=== PATIENT | male | born 1975 | race Hispanic/Latino ===

== ENCOUNTER 2017-01-30 06:34 | Emergency (ER) | payer OTHER ==
[2017-01-30 06:34] VITALS: BMI 29.9
[2017-01-30 06:55] VITALS: BP 120/69; PULSE 68; RESP 16; TEMP 98.3; O2SAT 98
[2017-01-30] MEDS ORDERED: Sodium Chloride 0.9% 1,000 ML IV STA (07:15)
--- NOTE | 2017-01-30 07:15 | ED PDOC ---
HPI: General Adult Time Seen by Provider: 01/30/17 07:12 Chief Complaint (Nursing): Abdominal Pain Chief Complaint (Provider): abdominal pain History Per: Patient History/Exam Limitations: no limitations Additional Complaint(s): 41yo male complaining of abdominal pain since last night. Also reports back pain , dizziness, nausea. States he's had constipation. Denies diarrhea, vomit or fever. Past Medical History Reviewed: Historical Data, Nursing Documentation, Vital Signs Vital Signs: Last Vital Signs Temp 98.3 F 01/30/17 06:53 Pulse 68 01/30/17 06:53 Resp 16 01/30/17 06:53 BP 120/69 01/30/17 06:53 Pulse Ox 98 01/30/17 07:19 - Medical History PMH: Bipolar Disorder, Hypercholesterolemia, Schizophrenia - Family History Family History: States: Unknown Family Hx - Immunization History Hx Tetanus Toxoid Vaccination: No Hx Influenza Vaccination: No Hx Pneumococcal Vaccination: No - Home Medications Home Medications: Ambulatory Orders Medication Instructions Recorded Paliperidone Palmitate [Invega mg IM Q30D 12/31/14 Sustenna] Divalproex [Depakote] mg PO DAILY 01/06/16 Azithromycin [Zithromax Z-Clifford] 250 mg PO DAILY #1 packet 04/05/16 Benzonatate 200 mg PO TID PRN #20 capsule 04/05/16 Fluticasone Nasal [Flonase] 1 spray NS DAILY #0 spr 04/05/16 Ibuprofen [Motrin] 600 mg PO Q6 #20 tab 07/27/16 Ibuprofen [Motrin] 400 mg PO Q6 #30 tab 08/29/16 Famotidine [Pepcid] 20 mg PO Q12 #20 tab 01/30/17 Ondansetron [Zofran] 4 mg PO Q8H #10 tab 01/30/17 - Allergies Allergies/Adverse Reactions: Allergies Allergy/AdvReac Type Severity Reaction Status Date / Time No Known Allergies Allergy Verified 08/29/16 16:31 Review of Systems ROS Statement: Except As Marked, All Systems Reviewed And Found Negative Gastrointestinal: Positive for: Nausea, Abdominal Pain, Constipation. Negative for: Vomiting, Diarrhea Musculoskeletal: Positive for: Back Pain Physical Exam - Reviewed Nursing Documentation Reviewed: Yes Vital Signs Reviewed: Yes - Physical Exam Appears: Positive for: Well, Non-toxic, No Acute Distress Head Exam: Positive for: ATRAUMATIC, NORMAL INSPECTION, NORMOCEPHALIC Skin: Positive for: Warm, Dry Eye Exam: Positive for: EOMI, PERRL Cardiovascular/Chest: Positive for: Regular Rate, Rhythm Respiratory: Positive for: Normal Breath Sounds. Negative for: Rales, Rhonchi, Wheezing Gastrointestinal/Abdominal: Positive for: Soft, Tenderness (mild epigastric). Negative for: Guarding, Rebound Extremity: Positive for: Normal ROM - Laboratory Results Result Diagrams: 01/30/17 08:08 01/30/17 08:08 - ECG O2 Sat by Pulse Oximetry: 98 (RA) Pulse Ox Interpretation: Normal Medical Decision Making Medical Decision Makin: Labs, IV fluids, pepcid, zofran ordered. Disposition - Clinical Impression Clinical Impression: Gastritis - Patient ED Disposition Is Patient to be Admitted: No Counseled Patient/Family Regarding: Studies Performed, Diagnosis, Need For Followup, Rx Given - Disposition Referrals: [facility] [Outside] Disposition: Routine/Home Disposition Time: 09:04 Condition: FAIR Prescriptions: Famotidine [Pepcid] 20 mg PO Q12 #20 tab Ondansetron [Zofran] 4 mg PO Q8H #10 tab Instructions: Gastritis (ED) Additional Comments - Additional Comments Additional Comments: Scribe Attestation: Documented by Levon Stark acting as a scribe for Luis F Rodríguez MD. Provider Scribe Attestation: All medical record entries made by the Scribe were at my direction and personally dictated by me. I have reviewed the chart and agree that the record accurately reflects my personal performance of the history, physical exam, medical decision making, and the department course for this patient. I have also personally directed, reviewed, and agree with the discharge instructions and disposition.
[2017-01-30 08:11] LABS: BASO # 0.1 K/uL (0.0-0.2); BASO % 0.7 % (0.0-2.0); EOS # 0.2 K/uL (0.0-0.7); EOS % 1.8 % (0.0-4.0); LYMPH # 0.8 K/uL (1.0-4.3); LYMPH % 8.5 % (20.0-40.0); MEAN CELL VOLUME 89.1 fl (80.0-94.0); MEAN CORPUSCULAR HEMOGLOBIN 30.2 pg (27.0-31.0); MEAN CORPUSCULAR HGB CONC 33.9 g/dL (33.0-37.0); MONO # 0.6 K/uL (0.0-0.8); MONO % 6.3 % (0.0-10.0); NEUT # 7.4 K/uL (1.8-7.0); NEUT % 82.7 % (50.0-75.0); PLATELET COUNT 178 K/uL (130-400); RED CELL DISTRIBUTION WIDTH 12.8 % (11.5-14.5)
[2017-01-30 08:33] LABS: ALB/GLOB RATIO 1.2 (1.0-2.1); ALKALINE PHOSPHATASE 63 U/L (38-126); ALT/SGPT 46 U/L (21-72); AST/SGOT 45 U/L (17-59); BILIRUBIN,TOTAL 0.4 mg/dl (0.2-1.3); BLOOD UREA NITROGEN 13 mg/dl (9-20); CALCIUM 9.2 mg/dL (8.4-10.2); CARBON DIOXIDE 26 mmol/L (22-30); CHLORIDE 103 mmol/L (98-107); GFR AFRICAN-AMERICAN > 60; GLUCOSE,RANDOM 108 mg/dL (75-110); POTASSIUM 4.1 MMOL/L (3.6-5.0); SODIUM 143 mmol/l (132-148); TOTAL PROTEIN 7.5 G/DL (6.3-8.2)
[2017-01-30 11:23] LABS: BASOPHIL 1 % (0-2); EOSINOPHIL 1 % (0-7); NEUTROPHIL 79 % (42-75); REACTIVE LYMPHOCYTES 2 % (0-0); TOTAL CELLS COUNTED 100
== END 2017-01-30 09:12 | disposition home or self-care (01) ==
LOC: H.ER 06:34
DX: K29.70 Gastritis, unspecified, without bleeding (principal); R42 Dizziness and giddiness; K59.00 Constipation, unspecified; E78.00 Pure hypercholesterolemia, unspecified; F20.9 Schizophrenia, unspecified; F31.9 Bipolar disorder, unspecified

== ENCOUNTER 2018-01-30 20:32 | Emergency (ER) | payer OTHER ==
[2018-01-30 20:32] VITALS: BMI 29.9
[2018-01-30 20:59] VITALS: BP 113/84; PULSE 68; RESP 18; TEMP 96.8; O2SAT 99
[2018-01-30 22:25] LABS: BASO # 0.1 K/uL (0.0-0.2); BASO % 0.9 % (0.0-2.0); EOS # 0.2 K/uL (0.0-0.7); EOS % 2.7 % (0.0-4.0); HEMOGLOBIN 14.2 g/dL (12.0-18.0); LYMPH # 1.8 K/uL (1.0-4.3); LYMPH % 26.6 % (20.0-40.0); MEAN CELL VOLUME 90.6 fl (80.0-94.0); MEAN CORPUSCULAR HEMOGLOBIN 30.7 pg (27.0-31.0); MEAN CORPUSCULAR HGB CONC 33.9 g/dL (33.0-37.0); MEAN PLATELET VOLUME 8.9 fl (7.2-11.7); MONO # 0.7 K/uL (0.0-0.8); MONO % 10.6 % (0.0-10.0); NEUT # 4.1 K/uL (1.8-7.0); NEUT % 59.2 % (50.0-75.0); RBC 4.61 Mil/uL (4.40-5.90); RED CELL DISTRIBUTION WIDTH 13.1 % (11.5-14.5); WHITE BLOOD COUNT 6.9 K/uL (4.8-10.8)
--- NOTE | 2018-01-30 22:28 | ED PDOC ---
HPI: Abdomen Time Seen by Provider: 01/30/18 21:01 Chief Complaint (Nursing): GI Problem Chief Complaint (Provider): Abdominal pain History Per: Patient History/Exam Limitations: no limitations Onset/Duration Of Symptoms: Hrs (1) Outside of [place] travel?: No Current Symptoms Are (Timing): Still Present Additional Complaint(s): 42yo male with history of schizoaffective bipolar disorder, gastritis, dislipidemia, presents to ED with abdominal pain for 1 hour. Patient states he has history of constipation but had a bowel movement last night which was ok. Patient states today he noted abdominal distention associated with mild pain; denies any fever, changes in appetite, or diarrhea. Patient has no other medical complaints. Past Medical History Reviewed: Historical Data, Nursing Documentation, Vital Signs Vital Signs: Last Vital Signs Temp 96.8 F L 01/30/18 20:55 Pulse 68 01/30/18 20:55 Resp 18 01/30/18 20:55 BP 113/84 01/30/18 20:55 Pulse Ox 99 01/30/18 22:31 - Medical History PMH: Bipolar Disorder, Hypercholesterolemia, Schizophrenia - Surgical History Surgical History: No Surg Hx - Family History Family History: States: Unknown Family Hx - Immunization History Hx Tetanus Toxoid Vaccination: No Hx Influenza Vaccination: No Hx Pneumococcal Vaccination: No - Home Medications Home Medications: Ambulatory Orders Medication Instructions Recorded Paliperidone Palmitate [Invega mg IM Q30D 12/31/14 Sustenna] Divalproex [Depakote] mg PO DAILY 01/06/16 Azithromycin [Zithromax Z-Clifford] 250 mg PO DAILY #1 packet 04/05/16 Benzonatate 200 mg PO TID PRN #20 capsule 04/05/16 Fluticasone Nasal [Flonase] 1 spray NS DAILY #0 spr 04/05/16 Ibuprofen [Motrin] 600 mg PO Q6 #20 tab 07/27/16 Ibuprofen [Motrin] 400 mg PO Q6 #30 tab 08/29/16 Famotidine [Pepcid] 20 mg PO Q12 #20 tab 01/30/17 Ondansetron [Zofran] 4 mg PO Q8H #10 tab 01/30/17 Dicyclomine [Bentyl] 20 mg PO Q12 PRN #20 tab 01/30/18 Docusate [Colace] 100 mg PO BID PRN #20 cap 01/30/18 - Allergies Allergies/Adverse Reactions: Allergies Allergy/AdvReac Type Severity Reaction Status Date / Time No Known Allergies Allergy Verified 08/29/16 16:31 Review of Systems ROS Statement: Except As Marked, All Systems Reviewed And Found Negative Constitutional: Negative for: Fever Gastrointestinal: Positive for: Abdominal Pain, Constipation. Negative for: Diarrhea Physical Exam - Reviewed Nursing Documentation Reviewed: Yes Vital Signs Reviewed: Yes - Physical Exam Appears: Positive for: Non-toxic, No Acute Distress Head Exam: Positive for: ATRAUMATIC, NORMAL INSPECTION, NORMOCEPHALIC Skin: Positive for: Normal Color Eye Exam: Positive for: Normal appearance Neck: Positive for: Normal, Supple Cardiovascular/Chest: Positive for: Regular Rate, Rhythm Respiratory: Positive for: Normal Breath Sounds Gastrointestinal/Abdominal: Positive for: Normal Exam, Soft, Distended (mild). Negative for: Tenderness Back: Positive for: Normal Inspection Extremity: Positive for: Normal ROM. Negative for: Deformity Neurologic/Psych: Positive for: Alert, Oriented. Negative for: Motor/Sensory Deficits - Laboratory Results Result Diagrams: 01/30/18 22:02 01/30/18 22:20 - ECG O2 Sat by Pulse Oximetry: 99 (RA) Pulse Ox Interpretation: Normal Medical Decision Making Medical Decision Making: Impression: 42yo male with abdominal pain, distention Plan: -- Bentyl 20mg PO -- Pepcid 20 mg IV -- Toradol 15 mg IV -- Labs -- Urinalysis -- XR Abdomen w/ Chest Time: 2210 Chest x-ray as reviewed by provider indicates no acute disease, no air fluid level. XR Abdomen shows stool burden. Time: 2341 --Upon provider reevaluation, patient is medically stable, reports improvement and requires no further treatment in the ED at this time. Patient will be discharged home with Rx for Bentyl 20mg and Colace 100mg. Counseling was provided and all questions were answered regarding diagnosis. There is agreement to discharge plan. Return if symptoms persist or worsen. Clinical Impression: Abdominal pain Scribe Attestation: Documented by Lizbeth Crespo acting as a scribe for Felix Christina MD. Provider Attestation: All medical record entries made by the Scribe were at my direction and personally dictated by me. I have reviewed the chart and agree that the record accurately reflects my personal performance of the history, physical exam, medical decision making, and the department course for this patient. I have also personally directed, reviewed, and agree with the discharge instructions and disposition. Disposition - Clinical Impression Clinical Impression: Abdominal pain - Patient ED Disposition Is Patient to be Admitted: No Counseled Patient/Family Regarding: Studies Performed, Diagnosis, Need For Followup - Disposition Disposition: Routine/Home Disposition Time: 23:42 Condition: STABLE Prescriptions: Dicyclomine [Bentyl] 20 mg PO Q12 PRN #20 tab PRN Reason: abdominal pain Docusate [Colace] 100 mg PO BID PRN #20 cap PRN Reason: Constipation Instructions: Stomach Ache and Stomach Upset Forms: [employer] (Danish)
[2018-01-30 22:31] LABS: URINE BACTERIA RARE (<OCC); URINE BILIRUBIN NEGATIVE (NEGATIVE); URINE BLOOD NEGATIVE (NEGATIVE); URINE CLARITY CLEAR (Clear); URINE COLOR STRAW (YELLOW); URINE GLUCOSE (UA) NEG (Normal); URINE LEUKOCYTE ESTERASE NEG Leu/uL (Negative); URINE PROTEIN NEGATIVE (NEGATIVE); URINE UROBILINOGEN 0.2-1.0 mg/dL (0.2-1.0)
[2018-01-30 22:34] LABS: ALB/GLOB RATIO 1.2 (1.0-2.1); ALBUMIN 4.4 g/dL (3.5-5.0); ALT/SGPT 55 U/L (21-72); AST/SGOT 46 U/L (17-59); BLOOD UREA NITROGEN 10 mg/dl (9-20); CALCIUM 8.9 mg/dL (8.4-10.2); GFR AFRICAN-AMERICAN > 60; GFR NON-AFRICAN AMERICAN > 60; LIPASE 113 U/L (23-300)
[2018-01-30 22:58] LABS: BARBITURATES, UR NEGATIVE (NEGATIVE); BENZODIAZEPINES, UR NEGATIVE (NEGATIVE); OPIATES, UR NEGATIVE (NEGATIVE); PHENCYCLIDINE, UR NEGATIVE (NEGATIVE)
--- NOTE | 2018-01-31 09:49 | RAD ---
HISTORY: abd pain COMPARISON: Chest radiograph dated 04/05/2016; CT scan of the abdomen and pelvis dated 09/21/2015. FINDINGS: The lungs are clear bilaterally without focal consolidation or pleural effusion. No pneumothorax is appreciated. Atherosclerotic aortic calcifications are redemonstrated. The visualized osseous structures are unchanged. The stomach is markedly distended. The bowel gas pattern is nonspecific. . A prominent matter retained colonic stool is evident. IMPRESSION: No focal consolidation or pleural effusion. Prominent amount of retained colonic stool. Distended stomach.
== END 2018-01-30 23:51 | disposition home or self-care (01) ==
LOC: H.ER 20:32
DX: R10.9 Unspecified abdominal pain (principal); E78.00 Pure hypercholesterolemia, unspecified; F20.9 Schizophrenia, unspecified; F31.9 Bipolar disorder, unspecified
CPT/HCPCS: 74022; 80053; 80324; 80345; 80346; 80349; 80353; 80358; 80361; 81003; 83690; 83992; 85025; 96374; 99282; J1885

== ENCOUNTER 2018-05-29 16:58 | Emergency (ER) | payer OTHER ==
[2018-05-29 16:58] VITALS: BMI 29.9
[2018-05-29 17:05] VITALS: BP 122/78; PULSE 94; RESP 16; TEMP 98.2; O2SAT 98
--- NOTE | 2018-05-29 17:55 | ED PDOC ---
HPI: Allergic Reaction Time Seen by Provider: 05/29/18 17:06 Chief Complaint (Nursing): Abnormal Skin Integrity Chief Complaint (Provider): Rash History Per: Patient History/Exam Limitations: no limitations Onset/Duration Of Symptoms: Days Current Symptoms Are (Timing): Still Present Associated Symptoms: Skin Rash, Itching, Redness. denies: Swelling, Dizziness Home/EMS Treatment: None Severity: None Additional Complaint(s): 42 year old male presents to the emergency for evaluation of a rash which he noticed earlier today. Patient states that he has not had similar symptoms in the past but does report that he has been using a new dove body wash Denies any other new exposures. Patient offers no other medical complaints at present. Denies shortness of breath, cough. facial swelling. difficulty swallowing saliva , nausea, vomiting, abdominal pain, recent travel. No medications were taken prior to arrival. PMD: Dr. Badillo Past Medical History Reviewed: Historical Data, Nursing Documentation, Vital Signs Vital Signs: Last Vital Signs Temp 98.2 F 05/29/18 17:00 Pulse 94 H 05/29/18 17:00 Resp 16 05/29/18 17:00 BP 122/78 05/29/18 17:00 Pulse Ox 98 05/29/18 17:00 - Medical History PMH: Bipolar Disorder (schizoaffective), Hypercholesterolemia, Osteoporosis, Schizophrenia - Surgical History Surgical History: Hernia Repair - Family History Family History: States: Unknown Family Hx - Social History Current smoker - smoking cessation education provided: No Alcohol: None Drugs: Denies - Immunization History Hx Tetanus Toxoid Vaccination: No Hx Influenza Vaccination: No Hx Pneumococcal Vaccination: No - Home Medications Home Medications: Ambulatory Orders Medication Instructions Recorded Paliperidone Palmitate [Invega mg IM Q30D 12/31/14 Sustenna] Divalproex [Depakote] mg PO DAILY 01/06/16 Azithromycin [Zithromax Z-Clifford] 250 mg PO DAILY #1 packet 04/05/16 Benzonatate 200 mg PO TID PRN #20 capsule 04/05/16 Fluticasone Nasal [Flonase] 1 spray NS DAILY #0 spr 04/05/16 Ibuprofen [Motrin] 600 mg PO Q6 #20 tab 07/27/16 Ibuprofen [Motrin] 400 mg PO Q6 #30 tab 08/29/16 Famotidine [Pepcid] 20 mg PO Q12 #20 tab 01/30/17 Ondansetron [Zofran] 4 mg PO Q8H #10 tab 01/30/17 Dicyclomine [Bentyl] 20 mg PO Q12 PRN #20 tab 01/30/18 Docusate [Colace] 100 mg PO BID PRN #20 cap 01/30/18 Calamine/Zinc Oxide [Calamine 1 applic TOP BID #1 bottle 05/29/18 Lotion] DiphenhydrAMINE [Benadryl] 50 mg PO Q6 PRN #20 cap 05/29/18 - Allergies Allergies/Adverse Reactions: Allergies Allergy/AdvReac Type Severity Reaction Status Date / Time No Known Allergies Allergy Verified 05/29/18 17:00 Review of Systems ROS Statement: Except As Marked, All Systems Reviewed And Found Negative Constitutional: Negative for: Fever ENT: Negative for: Mouth Swelling, Throat Swelling Respiratory: Negative for: Cough, Shortness of Breath Gastrointestinal: Negative for: Nausea, Vomiting, Abdominal Pain Skin: Positive for: Rash Physical Exam - Reviewed Nursing Documentation Reviewed: Yes Vital Signs Reviewed: Yes - Physical Exam Comments: GENERAL APPEARANCE: Patient is awake, alert, oriented x 3, in no acute distress , (-) lip swelling, (-0 facial swelling. SKIN: Erythematous papules to the left antecubital fossa, (-) excoriations, (- ) drainage, (-) evidence of cellulitis. Diffuse dry scaling patches with faint erythema to posterior neck and shoulders HENT: (-) conjunctival injection, (-) chemosis. Oropharynx: clear (-) tongue or lip swelling, (-) tonsillar exudates, (-) erythema. Airway: patent (-) stridor, (-) hoarseness. Mucous membranes moist. Nares: Patent (-) rhinorrhea. NECK: (-) lymphadenopathy, (-) tenderness, . CARDIOVASCULAR: Normal rate and rhythm. (-) murmur, (-) gallop. CHEST: (-) rales, (-) wheezing, (-) dyspnea, (-) stridor. Breath sounds equal bilaterally. ABDOMEN: Soft. (-) tenderness, (-) distention, (-) HSM. NEURO: Mental status: Patient is alert, oriented, and with normal strength and tone. - ECG O2 Sat by Pulse Oximetry: 98 (RA) Pulse Ox Interpretation: Normal - Progress ED Course And Treament: 1706 Initial Impression 42 year old male presenting with rash to consider: contact dermatitis Initial Plan: * Benadryl 50 mg PO (Not driving home) * Pepcid 40 mg PO * Reevaluation 1804 On re-evaluation, patient reports improvement of symptoms. On exam, patient remains AAOx3, in no acute distress. On exam, neck is supple, lungs CTA, cardiac RRR, neuro exam shows no focal findings. VSS, stable for discharge. Advised to withdraw use of offending agent. Diagnostic results d/w the patient in great detail. Dx of rash, likely contact dermatitis d/w the patient. Based on history, exam and diagnostic results plan will be for discharge and outpatient follow up. Advised to follow up with primary care physician in 1-2 days without fail. Advised to take medication as prescribed. Return to the emergency room at any time for any new or worsening symptoms. Patient states he fully agrees with and understands discharge instructions. States that he agrees with the plan and disposition. Verbalized and repeated discharge instructions and plan. I have given the patient opportunity to ask any additional questions. Documented by Bethany Quiroz acting as a scribe for Venecia Donovan PA-C. All medical record entries made by the Scribe were at my direction and personally dictated by me. I have reviewed the chart and agree that the record accurately reflects my personal performance of the history, physical exam, medical decision making, and the department course for this patient. I have also personally directed, reviewed, and agree with the discharge instructions and disposition. Disposition - Clinical Impression Clinical Impression: Rash, Contact dermatitis - Patient ED Disposition Is Patient to be Admitted: No Counseled Patient/Family Regarding: Studies Performed, Diagnosis, Need For Followup, Rx Given - Disposition Referrals: Vamsi Badillo MD [Family Provider] - Disposition: Routine/Home Disposition Time: 18:10 Condition: STABLE Additional Instructions: The emergency medical care you received today was directed at your acute symptoms. If you were prescribed any medication, please fill it and take as directed. It may take several days for your symptoms to resolve. Return to the Emergency Department if your symptoms worsen, do not improve, or if you have any other problems. Please contact your doctor in 2 days for re-evaluation and follow up / or call one of the physicians/clinics you have been referred to that are listed on the Patient Visit Information form that is included in your discharge packet. Bring any paperwork you were given at discharge with you along with any medications you are taking to your follow up visit. Our treatment cannot replace ongoing medical care by a primary care provider (PCP) outside of the emergency department. Prescriptions: Calamine/Zinc Oxide [Calamine Lotion] 1 applic TOP BID #1 bottle DiphenhydrAMINE [Benadryl] 50 mg PO Q6 PRN #20 cap PRN Reason: Allergy Symptoms Instructions: Skin Rash (DC), Contact Dermatitis (DC), Dermatitis Forms: [employer] (Mexican) Print Language: L[place]GISH - POA Present On Arrival: None
== END 2018-05-29 18:30 | disposition home or self-care (01) ==
LOC: H.ER 16:58
DX: L29.9 Pruritus, unspecified (principal); R21 Rash and other nonspecific skin eruption; L25.9 Unspecified contact dermatitis, unspecified cause; E78.00 Pure hypercholesterolemia, unspecified; Z86.59 Personal history of other mental and behavioral disorders; M81.0 Age-related osteoporosis without current pathological fracture